=== PATIENT | male | born 1990 ===

== ENCOUNTER 2020-01-31 21:47 | Emergency (ER) | payer SELFPAY ==
[2020-01-31] MEDS ORDERED: Sulfameth/Trimethoprim DS 800-160mg TAB ONE (22:06)
[2020-01-31] MEDS ORDERED: Cephalexin 250 MG CAP ONE (22:06)
== END 2020-01-31 22:22 | disposition home or self-care (01) ==
LOC: ERS 21:47
DX: L03.115 Cellulitis of right lower limb (principal)
CPT/HCPCS: 99283